=== PATIENT | male | born 1985 ===

== ENCOUNTER 2018-01-10 04:51 | Emergency (ER) | payer SELFPAY ==
[2018-01-10 04:55] VITALS: BP 146/97; PULSE 118; RESP 17; TEMP 37.1; O2SAT 97
--- NOTE | 2018-01-10 05:05 | ED.AMS ---
HPI - Altered Mental Status General Chief Complaint: Altered Mental Status Stated Complaint: Psycosis Time Seen by Provider: 01/10/18 04:55 Source: patient and family Mode of arrival: ambulatory Limitations: no limitations History of Present Illness HPI narrative: Patient's brother has brought him in because he has been acting bizarrely at home. Mother states the patient has looked uncomfortable and states he is struggling with a spirit. Brother states that the patient is only call if he listens to the Koran being sung on YouTube. Patient states he is having a wonderful spiritual experience, and states that no one else can understand his connection with God. Brother states that the patient was living in [place] for quite some time, and had a psychiatric admission there. brother states that normally, very mother lives with them, but that she is visiting the patient's sister in [facility]. The brother states he cannot manage the patient's condition at home. He states the patient is up most of the night every night wandering around and comes into his room randomly asking what he is doing. Brother states this is not the patient's usual behavior. MD complaint: altered mental status Onset (ago): day(s) ( Several) Timing confirmed by: family member Severity: moderate Consistency of symptoms: waxing and waning Context: other ( brother states that he is not aware of any alcohol or drug abuse on the patient's part, though a sister who also lives in the house does use drugs.) Associated symptoms: denies other symptoms ( Patient has not been ill with anything else, and has no other known medical problems.) Related Data Home Medications Medication Instructions Recorded Confirmed No Known Home Medications 01/10/18 01/10/18 Allergies Allergy/AdvReac Type Severity Reaction Status Date / Time No Known Drug Allergies Allergy Verified 01/10/18 08:45 Review of Systems Review of Systems All systems reviewed & are unremarkable except as noted in HPI and below Constitutional Denies chills, Denies fever(s), Denies lethargy and Denies weakness Eyes Denies change in vision, Denies eye discharge, Denies irritation and Denies loss of vision ENT Ears, Nose, Mouth, and Throat: Denies change in voice, Denies neck pain and Denies sore throat Cardiovascular Denies chest pain, Denies irregular heart rhythm, Denies lightheadedness, Denies palpitations, Denies dyspnea, Denies dyspnea on exertion and Denies orthopnea Respiratory Denies cough, Denies dyspnea, Denies dyspnea on exertion and Denies wheezing Gastrointestinal Gastrointestinal: Denies abdominal pain, Denies change in bowel habits, Denies diarrhea, Denies nausea and Denies vomiting Genitourinary Denies hematuria, Denies flank pain, Denies urinary incontinence and Denies urinary urgency Musculoskeletal Denies neck pain Integumentary/Breasts Denies pruritus, Denies erythema, Denies rash and Denies wounds Neurologic Denies confusion, Denies loss of vision and Denies weakness Psychiatric Denies anxiety, Denies confusion, Denies depression, Denies homicidal ideation and Denies suicidal ideation Endocrine Denies palpitations Hematologic/Lymphatic Denies easy bruising Allergic/Immunologic Denies wheezing Exam Initial Vital Signs Initial Vital Signs: Vital Signs Temperature 98.7 F 01/10/18 04:55 Pulse Rate 118 H 01/10/18 04:55 Respiratory Rate 17 01/10/18 04:55 Blood Pressure 146/97 H 01/10/18 04:55 Pulse Oximetry 97 01/10/18 04:55 Const General: cooperative and well developed Nutritional Appearance: well nourished Orientation: alert, awake, oriented x3 and not confused Other: Patient is calm and cooperative. He does have the [employer] playing constantly on his phone. He allows physical examination, and does cooperate with the history taking. [facility] Head: normocephalic and atraumatic Ears: external ears normal Nose: external nose normal and No nasal discharge Face and sinus: face symmetric and No dry mucous membranes Mouth: oral mucosae normal and moist mucous membranes Eyes General: appearance normal, both eyes and all related structures Eyelids: eyelids normal Conjunctivae: conjunctivae normal Sclera: sclerae normal Pupils: PERRL EOM: EOM intact bilaterally Neck Neck: normal visual inspection, trachea midline, No lymphadenopathy, No midline deformity and No JVD Lymphatic: No lymphedema Chest Chest: normal inspection of the chest Resp Effort & Inspection: normal respiratory effort, able to speak in complete sentences, no respiratory distress and no use of accessory muscles Auscultation: clear to auscultation bilaterally, no rales, no rhonchi and no wheezes Cardio Rate: regular rate Rhythm: regular rhythm Heart Sounds: no click, no gallops, no murmurs and no rubs Pulses: normal peripheral pulses GI Inspection: non-distended Palpation: soft, no hepatosplenomegaly, No guarding, No pulsatile mass and No tender Auscultation: normal bowel sounds Back/Spine/Pelvis Back: No CVA tenderness Cervical Spine: cervical ROM normal and No pain with cervical ROM Thoracic/Lumbar Spine: thoracic and lumbar spine normal to inspection Skin General: no rashes or lesions noted, No jaundice and No petechiae Neuro General: alert, oriented x3, gait normal and no focal motor deficits Speech: speech normal Extrem General: full ROM, no clubbing, cyanosis or edema, no pedal edema and no calf tenderness Psych Appearance: well kempt Mental Status: mental status grossly normal Attitude: cooperative Thought Content: normal and suicidality Judgment: judgment good Course Hospital Course: I did have a long, private discussion with the patient's brother, as well as his mother by phone. I explained to the mother that at this point, although the patient has been experiencing some bizarre behavior, he is oriented and is neither suicidal nor homicidal. As such, I do not have criteria to hold him involuntarily. I have explained to the family that if they are concerned about the patient in spite of these things, they can go through the legal process of requesting an involuntary hold for the patient anyway. The brother stated he does not want to do this. Patient initially agreed to stay voluntarily and did give a urine sample and allow his blood to be drawn. However, ultimately, he decided he wanted to leave the emergency department, and so was discharged. There was no deterioration of his status in the emergency department during his stay. MDM - Altered Mental Status Medical Records Attestation: I reviewed the patient's medical records. Discharge Plan Departure Patient Disposition: Home Clinical Impression: Psychoses Discharge Date/Time: 01/10/18 07:40 Interventions: ED Discharge Assessment Last Done: 01/10/18 07:39 Instructions: DI for Psychosis Prescriptions: No Action No Known Home Medications RF: 0 Referrals: [facility] [Provider Group] (Please follow up as soon as possible to establish care.)
--- NOTE | 2018-01-10 06:43 | PC.NURSE ---
Gave Pt cereal
--- NOTE | 2018-01-10 07:18 | PC.NURSE ---
0630 - Patient walking around ED refusing to stay in his room. Jakub BARKER took patient out for air per his request. upon returning to room patient began wandering around the ED again. This RN consulted the MD and she said he was voluntarily here so if he could either stay in his room or be discharged. I told the patient this and he chose to be discharged. He refused to stay for his discharge paperwork and left. His brother was called to provide ride. Brother was told if he became worried about safety he could call HARRISON or DENIS and provided him with the phone number.
--- NOTE | 2018-01-10 07:35 | PC.NURSE ---
0710 pt wandering emergency department. pt refusing to return to room, explained to patient the concern for privacy pt states i have an overwhelming feeling to see someone inquired about phoning family to be with him. coworker reports his brother has been contacted and is on his way. pt continues to walk toward exit and states i will wait out here talked with pt's primary RN who said that was acceptable. per nurse pt is here voluntarily, and brother is on his way. pt continued to waiting room, verbally agreeing to wait for discharge paper work. 0730 per admitting campus receptionist pt has been pacing around waiting area and outside. last she saw pt had went outside. continued outside looking for patient. unable to find patient to have him sign paperwork for discharge.
--- NOTE | 2018-01-10 07:36 | PC.NURSE ---
0500 Patient arrived to waterfront director with brother and was clearly not talking rationally. He was discussing gods and praying and the world not being right. He was A and O x 4 but otherwise had altered thought and flight of ideas. Pt. became very upset when asked to step into ED. Brother was clearly upset by proceedings and HARRISON was called so that he could be held safely for MD to assess. Pt. denies SI or HI. Moved to room 13 for evaluation. HARRISON remained on scene until ED physician sent them away.
--- NOTE | 2018-01-10 08:19 | PC.NURSE ---
0515 pt. put in room 11 because it was less institutional looking for patient and he was here voluntarily. He was told he needed to stay in the room and that he couldn't wander. pt. lay down on the bed and closed his eyes.
--- NOTE | 2018-01-10 08:21 | PC.NURSE ---
0600 pt. awake and did his prayers to [place]. After which he would leave room frequently to wander the ED . He was redirected numerous times to return to room - which he did, but never for longer than a couple minutes.
== END 2018-01-10 07:40 | disposition home or self-care (01) ==
PROVIDERS: Emergency Provider Emergency Medicine
DX: F29 Unspecified psychosis not due to a substance or known physiological condition (principal)
CPT/HCPCS: 99283

== ENCOUNTER 2018-01-10 08:09 | Emergency (ER) | payer SELFPAY ==
[2018-01-10] MEDS: diphenhydrAMINE 50 MG/ML VIAL IM (08:35)
[2018-01-10] MEDS: LORazepam 2 MG/ML SYRINGE IM (08:35)
[2018-01-10] MEDS: HALOPERIDOL 5 MG/ML VIAL IM (08:35)
[2018-01-10 08:45] VITALS: BP 156/80; PULSE 87; RESP 22; TEMP 36.2; O2SAT 100; BMI 29.9
--- NOTE | 2018-01-10 08:52 | ED.PSYCH ---
HPI - Psych General Chief Complaint: Psychiatric Symptoms Stated Complaint: mental health evaluation Time Seen by Provider: 01/10/18 08:42 Source: patient and police Limitations: altered mental status History of Present Illness HPI Narrative: patient brought in by police after he was found running down the street barefoot he reached into the police vehicle tried to grab a police gun. Patient says he wants to hurt his mother his sister and his brother. He was just released. He does have history of psychosis. I have spoken with his brother who states that his mother left out of town and at nighttime he seems to be hallucinating. During the day he says he seems back normal but it just is continuing to get worse. He was in [place] [facility] where he was committed to a mental hospital. He is not sure what mental illness his brother has. Patient at this time is not able to give a good history. He says the spirits will get him. At he admits to wanting to hurt his mother and sister. Patient actually lived in [facility] for the last 7 years there was at least a 1 month mental health hospital stay but no one is able to give me any information about that. Mom is only talk to him on the phone. He moved to the [facility] in July actually came to visit and has not yet returned. Mom has noticed that he stays in the same clothes he does not shower she thought maybe he was depressed. The brother states that he has been escalating over the last few days he has seems to be having hallucinations which have progressively gotten worse. The brother is scared if he gets released. Related Data Home Medications Medication Instructions Recorded Confirmed No Known Home Medications 01/10/18 01/10/18 Allergies Allergy/AdvReac Type Severity Reaction Status Date / Time No Known Drug Allergies Allergy Verified 01/10/18 08:45 Review of Systems Review of Systems unobtainable due to mental status [facility] Social History Smoking Status: Never smoker Exam Initial Vital Signs Initial Vital Signs: Vital Signs Temperature 97.1 F L 01/10/18 08:45 Pulse Rate 87 01/10/18 08:45 Respiratory Rate 22 01/10/18 08:45 Blood Pressure 156/80 H 01/10/18 08:45 Pulse Oximetry 100 01/10/18 08:45 GENERAL: Disheveled aggressive confusion HEAD: No sign of trauma CARDIOVASCULAR: peripheral pulses in tact, cap refill <2 sec RESPIRATORY: No respiratory distress, speaks in full sentences without difficulty EXTREMITIES: Normal range of motion, no clubbing or edema. Neurovascularly intact NEUROLOGICAL: Cranial nerves II through XII grossly intact. Normal gait and speech. SKIN: Warm, dry, no petechiae, no rashes or lesions. Course Orders Ordered: ED Orders 01/10/18 10:42 Urine Drug Screen, Rapid Stat 01/10/18 16:15 Potassium Stat Discontinued Medications Diphenhydramine HCl (Benadryl) 50 mg IM NOW ONE Stop: 01/10/18 08:43 Last Admin: 01/10/18 08:35 Dose: 50 mg Haloperidol (Haldol) 5 mg IM NOW ONE Stop: 01/10/18 08:43 Last Admin: 01/10/18 08:35 Dose: 5 mg Lorazepam (Ativan) 2 mg IM NOW ONE Stop: 01/10/18 08:43 Last Admin: 01/10/18 08:35 Dose: 2 mg Lorazepam (Ativan) 1 mg PO NOW ONE Stop: 01/10/18 15:06 Last Admin: 01/10/18 15:11 Dose: Not Given Potassium Chloride (Potassium Chloride) 40 meq PO NOW ONE Stop: 01/10/18 14:41 Last Admin: 01/10/18 14:55 Dose: 40 meq Potassium Chloride (Potassium Chloride) 20 meq PO NOW ONE Stop: 01/10/18 15:06 Last Admin: 01/10/18 15:08 Dose: 20 meq Vital Signs - 8 hr 01/10/18 11:01 01/10/18 15:56 Temperature 97.2 F L 98.8 F Pulse Rate 70 114 H Respiratory Rate 18 18 Blood Pressure [Left Wrist] 102/69 146/98 H Pulse Oximetry 97 100 Mental Status Exam Patient Appearance: Unkempt and Disheveled Level of Consciousness: Alert, Awake and Combative Speech Pattern: Confabulation Mood Description: Angry Ability to Follow Directions: Fair Thought Process:: Illogical Physical Status Respirations: Normal respiratory rate Cardiac: Regular Rate Circulation: Moves all extremities Assessment of Situation Behavior necessitating restraint: Agitated Restraint Risks: Airway obstruction (Restricted blood flow, damage nerve, damage tissue) Restraint risks explained to patient: Yes Restraint risks explained to family: Yes Comments Additional Comments: Patient initially was quite aggressive toward staff is and police. Initially brought in in handcuffs. He was chemically restrained and placed in 4 point restraints in till chemicals became effective. 4 point restraints have been removed as medication has been working MDM - Psych Lab Data Result diagrams: 01/10/18 05:45 01/10/18 16:15 Lab Results 01/10/18 01/10/18 01/10/18 Range/Units 05:45 05:45 10:42 WBC 8.9 (4.5-11.0) X10^3/uL RBC 4.94 (4.5-5.9) X10^6/uL Hgb 15.2 (13.5-17.5) g/dL Hct 42.6 (41-53) % MCV 86.2 (80-100) fL MCH 30.7 (26-34) PG MCHC 35.6 (30-36) % RDW 12.1 (11.6-14.8) % Plt Count 401 H (150-400) X10^3/uL Neut % (Auto) 66.5 (50-75) % Lymph % (Auto) 23.0 L (25-40) % [place] % (Auto) 9.8 (3-14) % Eos % (Auto) 0.2 L (2-4) % Baso % (Auto) 0.5 (0-2) % Neut # (Auto) 5900 (7607-3473) /uL Sodium 142 (137-145) mmol/L Potassium 3.0 L (3.4-5.1) mmol/L Chloride 97 L (98-107) mmol/L Carbon Dioxide 30 (22-32) mmol/L BUN 13 (9-20) mg/dL Creatinine 0.80 (0.66-1.25) mg/dL Estimated GFR > 60.0 (>60) mL/min BUN/Creatinine Ratio 16.3 (6-22) Glucose 180 H (70-100) mg/dL Calcium 9.9 (8.4-10.2) mg/dL Total Bilirubin 1.2 (0.2-1.3) mg/dL AST 93 H (17-59) IU/L ALT 27 (21-72) IU/L Alkaline Phosphatase 90 (38-126) U/L Total Protein 8.2 (6.3-8.2) g/dL Albumin 5.0 (3.5-5.0) g/dL Globulin 3.2 (1.7-4.1) g/dL Albumin/Globulin Ratio 1.6 (1.0-2.8) Urine Opiates Screen Negative (Negative) Ur Oxycodone Screen Negative (Negative) Urine Methadone Screen Negative (Negative) Ur Barbiturates Screen Negative (Negative) U Tricyclic Antidepress Negative (Negative) Ur Phencyclidine Scrn Negative (Negative) Ur Amphetamines Screen Negative (Negative) U Methamphetamines Scrn Negative (Negative) Ur MDMA Scrn (Ecstasy) Negative (Negative) U Benzodiazepines Scrn Negative (Negative) Urine Cocaine Screen Negative (Negative) U Marijuana (THC) Screen Positive H (Negative) Ethyl Alcohol < 10 mg/dL 01/10/18 Range/Units 16:15 WBC (4.5-11.0) X10^3/uL RBC (4.5-5.9) X10^6/uL Hgb (13.5-17.5) g/dL Hct (41-53) % MCV (80-100) fL MCH (26-34) PG MCHC (30-36) % RDW (11.6-14.8) % Plt Count (150-400) X10^3/uL Neut % (Auto) (50-75) % Lymph % (Auto) (25-40) % [place] % (Auto) (3-14) % Eos % (Auto) (2-4) % Baso % (Auto) (0-2) % Neut # (Auto) (6340-5620) /uL Sodium (137-145) mmol/L Potassium 3.9 (3.4-5.1) mmol/L Chloride (98-107) mmol/L Carbon Dioxide (22-32) mmol/L BUN (9-20) mg/dL Creatinine (0.66-1.25) mg/dL Estimated GFR (>60) mL/min BUN/Creatinine Ratio (6-22) Glucose (70-100) mg/dL Calcium (8.4-10.2) mg/dL Total Bilirubin (0.2-1.3) mg/dL AST (17-59) IU/L ALT (21-72) IU/L Alkaline Phosphatase (38-126) U/L Total Protein (6.3-8.2) g/dL Albumin (3.5-5.0) g/dL Globulin (1.7-4.1) g/dL Albumin/Globulin Ratio (1.0-2.8) Urine Opiates Screen (Negative) Ur Oxycodone Screen (Negative) Urine Methadone Screen (Negative) Ur Barbiturates Screen (Negative) U Tricyclic Antidepress (Negative) Ur Phencyclidine Scrn (Negative) Ur Amphetamines Screen (Negative) U Methamphetamines Scrn (Negative) Ur MDMA Scrn (Ecstasy) (Negative) U Benzodiazepines Scrn (Negative) Urine Cocaine Screen (Negative) U Marijuana (THC) Screen (Negative) Ethyl Alcohol mg/dL MDM Narrative Medical decision making narrative: I have discussed of patient's signs and symptoms with the brother and the mother. Mental Health has been dispatched. Patient remains alert and cooperative. Restraints have been removed. He has been accepted over at [facility]. Initially hypokalemic however potassium is improved. Discharge Plan Departure Patient Disposition: Xfer Psychiatric Hosp Clinical Impression: Acute psychosis Interventions: ED Discharge Assessment Last Done: 01/10/18 17:21
[2018-01-10 08:56] LABS: Add Manual Diff / Slide Review NO; Basophils Percent Auto 0.5 % (0-2); Eosinophils Percent Auto 0.2 % (2-4); Hematocrit 42.6 % (41-53); Hemoglobin 15.2 g/dL (13.5-17.5); Mean Corpuscular HGB Conc 35.6 % (30-36); Mean Corpuscular Hemoglobin 30.7 PG (26-34); Mean Corpuscular Volume 86.2 fL (80-100); Monocytes Percent Auto 9.8 % (3-14); Neutrophils Absolute Auto 5900 /uL (3000-5900); Neutrophils Percent Auto 66.5 % (50-75); Platelet Count 401 X10^3/uL (150-400); Red Blood Cell Count 4.94 X10^6/uL (4.5-5.9); Red Cell Distribution Width 12.1 % (11.6-14.8); White Blood Cell Count 8.9 X10^3/uL (4.5-11.0)
[2018-01-10 09:02] LABS: Alanine Aminotransferase 27 IU/L (21-72); Albumin Globulin Ratio 1.6 (1.0-2.8); Alkaline Phosphatase 90 U/L (38-126); Aspartate Aminotransferase 93 IU/L (17-59); BUN Creatinine Ratio 16.3 (6-22); Bilirubin Total 1.2 mg/dL (0.2-1.3); Blood Urea Nitrogen 13 mg/dL (9-20); Calcium 9.9 mg/dL (8.4-10.2); Carbon Dioxide 30 mmol/L (22-32); Chloride 97 mmol/L (98-107); Estimated Glomerular Filt Rate > 60.0 mL/min (>60); Ethanol (ETOH) < 10 mg/dL; Globulin 3.2 g/dL (1.7-4.1); Glucose 180 mg/dL (70-100); HEMOLYSIS 18 (0-50); Sodium 142 mmol/L (137-145); Total Protein 8.2 g/dL (6.3-8.2)
--- NOTE | 2018-01-10 09:04 | PC.NURSE ---
asked pt how he is feeling. pt states with a smile im fine, this is all normal. pt asked why he is still in restraints, explained to patient he is unpredictable, he asked why we think that explained to patient the report from the police when they told us he attempted to grab their gun, pt shakes his head yes and states yes i remember that.
--- NOTE | 2018-01-10 09:22 | PC.NURSE ---
pt states he has been seen by a psychatrist who prescribed him medications but pt state he did not take them they did not work.
--- NOTE | 2018-01-10 09:26 | PC.NURSE ---
pt's brother Jose [phone]
--- NOTE | 2018-01-10 09:31 | PC.NURSE ---
pt sat up in bed and states i know you have rules and everything but can we compromise explained to patient we did and took him out of two of the restraints. explained to patient we will reevaluate his situation at 10am and possibly take him out of the other 2 restraints as long as he continues to stay calm, cooperative and not impulsive to provide assurance for his safety and the safetey of others. pt verbally agreed and layed back down in bed.
--- NOTE | 2018-01-10 10:36 | PC.NURSE ---
dr carver talking with patients mom on telephone.
--- NOTE | 2018-01-10 10:40 | PC.NURSE ---
Addendum entered by Tessa Briggs CNA 01/10/18 10:45: Original Note: Patient under covers in room. Can see the rise and fall of patient's chest.
--- NOTE | 2018-01-10 10:42 | PC.NURSE ---
Patient is resting on bed. Patient can be heard snoring- normal snoring- from outside the room.
--- NOTE | 2018-01-10 10:44 | PC.NURSE ---
Patient is resting in bed under covers. Can see the rise and fall of the chest.
--- NOTE | 2018-01-10 10:46 | PC.NURSE ---
Patient is in bed, resting comfortably under blankets. Rise and fall of chest witnessed.
--- NOTE | 2018-01-10 10:47 | PC.NURSE ---
Patient is in bed. Rise and fall of chest witnessed.
[2018-01-10 10:52] LABS: Urine Amphetamines Negative (Negative); Urine Barbiturates Negative (Negative); Urine Benzodiazepines Negative (Negative); Urine Cocaine Negative (Negative); Urine MDMA Negative (Negative); Urine Methadone Negative (Negative); Urine Methamphetamines Negative (Negative); Urine Morphine/Opi cutoff 2000 Negative (Negative); Urine Oxycodone Negative (Negative); Urine Phencyclidine Negative (Negative); Urine Tetrahydrocannabinol Positive (Negative); Urine Tricyclic Antidepressant Negative (Negative)
--- NOTE | 2018-01-10 10:53 | PC.NURSE ---
Patient is on gurney, resting, blanket on. Patient is snoring with rise and fall of chest witnessed.
[2018-01-10 11:01] VITALS: BP 102/69; PULSE 70; RESP 18; TEMP 36.2; O2SAT 97
--- NOTE | 2018-01-10 11:04 | PC.NURSE ---
Patient is in bed. [place] on. Did a set of vitals on him (97.2 pulse; 70 heart rate; 18 resps; 97% oxygen level on room air; 102/69)
--- NOTE | 2018-01-10 11:15 | PC.NURSE ---
Patient is in bed. Snoring. Rise and fall of chest witnessed.
--- NOTE | 2018-01-10 11:30 | PC.NURSE ---
Patient is sleeping on bed. Has blanket over him. Witnessed rise and fall of chest.
--- NOTE | 2018-01-10 11:45 | PC.NURSE ---
Patient is on bed, moving feet, snoring. Witnessed chest rise and fall.
--- NOTE | 2018-01-10 12:00 | PC.NURSE ---
Patient turned onto his side. Patient is snoring. Rise and fall of chest witnessed.
--- NOTE | 2018-01-10 12:23 | PC.NURSE ---
Patient sat on edge of bed. Wanted to get up to use the bathroom. While we were getting the keys, patient went to another bathroom. He then proceeded to wash his face, hands, arms, legs, and feet in the sink. We encouraged a shower if he needed it. He declined.
--- NOTE | 2018-01-10 12:30 | PC.NURSE ---
Patient asleep in bed. Witnessed the rise and fall of chest.
--- NOTE | 2018-01-10 12:45 | PC.NURSE ---
Patient got up, wandered out of room. We asked him if he needed anything. He said no. We asked him if he needed lunch. He agreed to it. He sat on edge of the bed. RN ordering lunch for him.
--- NOTE | 2018-01-10 12:52 | PC.NURSE ---
pt calm and cooperative, continues to be a heavy flight risk, will discontinue chemical and physical restraints, but keep pt's sitter on watch. millie in route, working on psych bed at [facility].
--- NOTE | 2018-01-10 13:36 | PC.NURSE ---
Patient voided. Washed body in the sink. Now he's in the room praying.
--- NOTE | 2018-01-10 13:51 | PC.NURSE ---
Patient is laying in bed with blankets.
--- NOTE | 2018-01-10 14:04 | PC.NURSE ---
pt calm, cooperative, redirectable. pt begins to explain difficult to get answers to my questions. difficult to understand what pt is trying to explain to me. asked pt directly if there was any questions I could answer for him, explained to patient he has to stay in the room, if he is unable to follow directions, increased safety measures will need to be used. pt verbally states i understand then sat back down on bed.
--- NOTE | 2018-01-10 14:07 | PC.NURSE ---
Pt is sleeping in bed.
[2018-01-10] MEDS: POTASSIUM CHLORIDE 20 MEQ/15 ML UDC 40 MEQ PO (14:55)
--- NOTE | 2018-01-10 15:02 | PC.NURSE ---
Patient walked out of room, when I tried to reorient patient to get back into bed or the room. We got him back into the room. He voided. He's in the room, praying.
[2018-01-10] MEDS: POTASSIUM CHLORIDE 20 MEQ/15 ML UDC PO (15:08)
--- NOTE | 2018-01-10 15:11 | PC.NURSE ---
pt refusing to take ativan. pt states i want to prove to you that I dont need that to stay calm pt took potassium without difficulty. explained to patient if restraints have to be initiated again he will not qualify for inpatient treatment, will not be able to take the next step of treatment. pt verabally express understanding to direction.
--- NOTE | 2018-01-10 15:49 | PC.NURSE ---
Patient in bed. Patient sleeping. Watching the rise and fall of his chest.
[2018-01-10 15:56] VITALS: BP 146/98; PULSE 114; RESP 18; TEMP 37.1; O2SAT 100
--- NOTE | 2018-01-10 16:02 | PC.NURSE ---
Pt wanted to know if he can call family and wanted to know if his family is calling for him because I can feel it. I can feel like they're trying to call for me. Explained that no one has called for him right now we just want him to get some sleep. Put some cranberry juice out for him.
--- NOTE | 2018-01-10 16:11 | PC.NURSE ---
Patient sat at edge of bed and was moving about wanted to talk. I asked what could I do for him. He said I know this is going to be weird and keep with me and it may make you uncomfortable. But I've been with God. Repeating that there's a difference between believing in God (You always believe in God) and having opal (Opal is something I've struggled with). He kept repeating this. Explained last time he had this feeling he needed feel God. This conversation went around in circles. Told me Tell my family I'm with God. I'm okay I'm with God. And then paused and said Tell God I'm with my family. Asked for pages of the Quran and wanted to read certain pages. I brought the COW near the edge of the room. Printed out pages 14-19 of the Quran in Pashto. Patient in room reading. Alerted Nurse Teresa.
--- NOTE | 2018-01-10 16:27 | PC.NURSE ---
Patient stood at edge of bed and I asked if I could help him. He said I've read it. The text you've given me explains it all. Explains the world. He then wanted to read the Quoran in Uzbek and Serbian to me and explain the text to me. And what it means to him. It all makes sense. Everything makes sense. I'd like to talk to you about it. I smiled and let him try to explain. I thanked him after a minute of talking and then asked is there anything I can help you with? Patient said I just want my family to know I love them and I am with God right now. Patient is back in bed.
[2018-01-10 16:38] LABS: HEMOLYSIS < 15 (0-50); Potassium 3.9 mmol/L (3.4-5.1)
--- NOTE | 2018-01-10 16:54 | PC.NURSE ---
Brought patient dinner. Wanted to know what it was. Wanted to know if it was pork. Assured him it wasn't. Patient got up and wanted to talk about adenike again. Asked if he could make a phone call. He said he needs to talk to his sister God wants me to talk to my sister. I suggested for him to write a letter until he could call her. I got him a marker and a piece of paper. He said it's gonna sound different. Something you aren't used to. But I see you want to learn. I need to speak to my sister. I need her to know. I need her feedback. God wants me to talk to my sister. Reiterated that I understand- that I'm very close to my sister, so I understand. He nodded. I just need to talk to my sister. God wants me to talk to her. I feel God. I explained right now I don't have the means for you to talk to your sister. But if you want to write your thoughts so that way you can tell her later... He refused. He wants to eat dinner. I told him it was Asr time to pray (he had asked to be reminded at 4:48pm). He asked to be reminded in a few minutes so he could eat dinner. Eating dinner and washing himself in the sink in bathroom. [address] Patient [address] facing west.
--- NOTE | 2018-01-10 17:09 | PC.NURSE ---
Patient held up all his solid dishes and wanted to talk about his phone call and adenike again. Patient ate 80% of his meal. I told him right now I needed him in his room. He said I feel more comfortable outside the room. I said I understand that, but right now with how busy we are I need you to be in the room. I'd be super appreciative. He is in the bed, sitting at the edge of the bed reading the Quran.
--- NOTE | 2018-01-10 17:27 | PC.NURSE ---
Patient walked to the door, a little past and wanted to talk about how the translation of the Quran I found for him was an improper translation in Czech. Apparently in Czech it wasn't the right translation and he was upset I know you did your best to find the Quran, but it's the wrong words and it won't help me get better with God. I need the better translation. Can I have my phone and show you? It'll help you get better with God. Can I have my phone and get my copy? I explained that wasn't allowed right now. Can we find it online? I'm sure I can show you online. I explained that it wasn't okay for patients to use our computer to find Quran verses. I told him I'd try to find a Quran for him. He went back to bed. Then he got up 5 minutes later (as I was writing this note) saying that he needed to talk to his doctor because he has so much going on his head and he'd like to talk to his doctor. I explained to him I'd let his nurse know. Patient back in bed. Alerted nurse
--- NOTE | 2018-01-10 17:39 | PC.NURSE ---
Called the Investigator Operator, per Audrey Phillips's advice to get a copy of the Quran. The Investigator Operator was at soccer practice and wasn't on site of the hospital. I explained that I could find another copy of the Quran and thank you for his time. Will tell the patient what I have found.
--- NOTE | 2018-01-10 18:08 | PC.NURSE ---
Patient was getting up moving in bed. I went to check on him. He was praying. I asked him if he was okay. He motioned for me to come into the room and then began to talk to me and said you don't have to be scared. Just because you don't speak the language. Because you don't understand. I said I'm just making sure you are okay. Patient is in the bathroom voiding.
--- NOTE | 2018-01-10 18:40 | PC.NURSE ---
pt allowed to talk with brother. over heard pt repeatedly saying to family you have to stick together :i promised you, just wait til i get out of here after hanging up pt states i have to go home explained to patient his plan of care, pt verbally agreed and went back into room. pt attempting to describe how 'we can not answer our own questions references gods will pt adamant he is not going to take medications he likes the way he is. explained to patient the psychiatrist will help give him more tools to use to control this behavior. pt again adament i am not taking medications, i like the way I am pt is calm and cooperative does remember todays events.
--- NOTE | 2018-01-10 19:09 | PC.NURSE ---
Patient wanted to take a shower. Explained to him that he was going to another facility and we don't normally shower in the emergency room. He was really pushing this saying I need to shower. I can see you are a good person. I think you see I need to shower. I need to be clean. Very pushing this. Standing at the door, demanding it. Finally talked to NIEVES Moore. Used one of the bathrooms, bathed him, doors open. Took a 10 minute shower, washed hair, voided, washed face. Changed into hospital gown. Expressed that if the transport comes and it is time to pray he wants to pray and then be transported. I told him I'd tell the nurse.
[2018-01-10 19:34] VITALS: BP 148/94; PULSE 93; RESP 18; TEMP 36.2; O2SAT 100
[2018-01-10 19:44] VITALS: BP 145/94; PULSE 92; RESP 18; O2SAT 100
== END 2018-01-10 19:49 ==
PROVIDERS: Emergency Provider Emergency Medicine
DX: F23 Brief psychotic disorder (principal)
CPT/HCPCS: 80053; 80305; 80320; 84132; 85025; 96372; 99285; J1200; J1630; J2060